=== PATIENT | male | born 1980 | race Caucasian/White ===

== ENCOUNTER 2019-03-08 09:45 | Outpatient (RCR) | payer OTHER ==
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
--- NOTE | 2019-03-01 10:21 | PT PLAN OF CARE ---
Physician: Rickie Barfield DC Patient is being seen: 2-3x/Week Therapist: Luh Ontiveros, PT, DPT, CLT Medical Diagnosis: Frequent Headaches, Cervical Pain, Lumbar Pain Treatment Diagnosis: Same Date of Onset: 10/30/18 Date of Initial Evaluation: 01/20/19 Date patient was last seen: 03/01/19 Number of treatments: 11 Number of cancellations/No shows: 2 INTERVENTIONS: Manual Therapy/STM/MET Strengthening/condition Ice/Heat Range of Motion Spinal Stabilization Ultrasound Stretching Neuromuscular Re-ed Electrical Stim Posture/Body mechanics Home Exercise Program Mech./Manual Traction GOALS: In 3 weeks pt will improve cervical ROM to full in all directions for improved function with ADL's. MET In 6 weeks pt will improve deep cervical musculature hold to 15 seconds prior to fatigue. MET In 6 weeks pt will improve Neck Pain and Disability Index score to <5/50 for improved function with ADL's In Progress PATIENT'S GOAL: Decrease neck pain and headaches. Status of Patient's Goals: 2/3 MET, 1/3 In Progress Patient Compliance: Good Prognosis: Good Reasons for continuing therapy: Kareem shows excellent improvement in scapulohumeral rhythm as well as improved deep cervical flexor activation for stability. Pain is minimal to absent at this time and pt shows good compliance with HEP to maintain neuromuscular reeducation gains. Pt is to continue PT for few more sessions to monitor independent progress and be then be evaluated for discharge. Posture: Forward head posture. ROM: Cervical ROM: full all directions without pain Strength: Deep cervical musculature holds: 15 Seconds Outcome measures: Neck Pain and Disability Index: 5/50 If you have any question or concerns, please feel free to contact me at [phone]. Thank you, Luh Ontiveros, PT, DPT, CLT Referring Provider Signature: [facility]
[~2019-03-08 09:45] MED LIST: ALLO-119 PO; OSE75 PO; PRED-1 PO
--- NOTE | 2019-03-08 10:21 | PT PLAN OF CARE ---
Physician: Rickie Barfield DC Patient is being seen: 2-3x/Week Therapist: Luh Ontiveros, PT, DPT, CLT Medical Diagnosis: Frequent Headaches, Cervical Pain, Lumbar Pain Treatment Diagnosis: Same Date of Onset: 10/30/18 Date of Initial Evaluation: 01/20/19 Date patient was last seen: 03/08/19 Number of treatments: 12 Number of cancellations/No shows: 2 INTERVENTIONS: Manual Therapy/STM/MET Strengthening/condition Ice/Heat Range of Motion Spinal Stabilization Ultrasound Stretching Neuromuscular Re-ed Electrical Stim Posture/Body mechanics Home Exercise Program Mech./Manual Traction GOALS: In 3 weeks pt will improve cervical ROM to full in all directions for improved function with ADL's. MET In 6 weeks pt will improve deep cervical musculature hold to 15 seconds prior to fatigue. MET In 6 weeks pt will improve Neck Pain and Disability Index score to <5/50 for improved function with ADL's MET PATIENT'S GOAL: Decrease neck pain and headaches. Status of Patient's Goals: 3/3 MET Patient Compliance: Good Prognosis: Good Reasons for continuing therapy: Kareem is to discharge from physical therapy at this time secondary to completion of 3/3 functional goals. 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 Cervical ROM is full without pain or stiffness with good shoulder and cervical mechanics bilaterally. Pt is to continue with HEP for 1 MO following discharge to maintain scapular mechanics pattern and then continue with ADL's. Posture: Forward head posture. ROM: Cervical ROM: full all directions without pain Strength: Deep cervical musculature holds: 15 Seconds Outcome measures: Neck Pain and Disability Index: 2/50 If you have any question or concerns, please feel free to contact me at [phone]. Thank you, Luh Ontiveros, PT, DPT, CLT Referring Provider Signature: Date: [facility]
== END 2019-03-08 18:00 | disposition home or self-care (01) ==
LOC: PT 09:45
PROVIDERS: ATTEND Chiropractor
DX: R51 Headache (principal); M54.5 Low back pain; M54.2 Cervicalgia
CPT/HCPCS: 97161